=== PATIENT | female | born 1955 ===

== ENCOUNTER 2022-05-08 09:37 | Outpatient (CLI) | payer OTHER | END 2022-05-08 09:38 | disposition home or self-care (01) | LOC: SONOGRAMA 09:37 | PROVIDERS: ATTEND Obstetrics & Gynecology Gynecology | DX: N84.0 Polyp of corpus uteri (principal); E55.9 Vitamin D deficiency, unspecified; N60.11 Diffuse cystic mastopathy of right breast; R92.1 Mammographic calcification found on diagnostic imaging of breast; N63 Unspecified lump in breast; R87.610 Atypical squamous cells of undetermined significance on cytologic smear of cervix (ASC-US) ==